=== PATIENT | male | born 1985 | race Caucasian/White ===

== ENCOUNTER 2016-04-10 04:21 | Emergency (ER) | payer OTHER ==
[~2016-04-10] VITALS: Ht 177.8 cm; Wt 65.9 kg
[~2016-04-10 04:21] MED LIST: AMOX-366 PO; OXYC1TAB24 PO
[2016-04-10 04:38] VITALS: BP 145/99; PULSE 97; RESP 18; O2SAT 99
--- NOTE | 2016-04-10 04:46 | ED.REPORT ---
HPI-Facial Injury Date of Service Apr 10, 2016 ED Provider: Doc,Ed MD The patient is a 31 year old male who presents to the ED complaining of a cyst to his chin for the last two days. He also reports continued pain from second degree collins he sustained earlier this week to both hands which he was treated for at [facility] (required 4 day stay). He denies any other symptoms at this time. Nursing Notes Stated Complaint: CYST ON CHIN,RED STREAK L LEG PAIN IN HANDS Chief Complaint: Skin Rash/Abscess Nursing Notes Reviewed: Yes Allergies: Coded Allergies: No Known Allergies (Verified Allergy, Unknown, 11/30/15) Scheduled Amoxicillin/Clav K 875-125 mg (Augmentin 875-125 mg) 1 Each Tablet 1 TABLET PO BID oxyCODONE-Acetaminophen 5-325 mg (oxyCODONE-Acetaminophen 5-325 mg) 1 Each Tablet 1-2 TAB PO q4-6h Miscellaneous Medications ([None]) General Time Seen by Provider: 04:50 Chief Complaint Other (chin cyst, collins to hands) Hx Obtained From: Patient Arrived By: Walk-in Onset Occurred: 2 days ago Symptom Duration: Since onset Progression Since Onset: Unchanged Location: : Chin Quality: Painful Severity: Current: Mild Severity: Maximum: Moderate Recent Healthcare: Recent doctor visit, Recent hospitalization Similar Sx Previous: No Past Medical History Past Medical History Denies Reports: Heroin use Past Surgical History None Smoking History Current Every Day Smoker Social History Lives with his father in an , which they move to different locations daily. Both him and his father use heroin. Drug Use: Meth, Other Other Social History: Poor social support, Local resident Ambulatory Status Independent Review of Systems Review of Systems Note: Cyst to chin Second degree collnis to both hands Constitutional: Denies: Chills, Fever Musculoskeletal: Reports: Extremity pain (bilat hands) Neurologic: Denies: Change LOC, Headache, Lightheaded, Numbness Complete sys rev & neg: except as marked. Physical Exam Initial Vital Signs Vital Signs (First) Date Time Temp Pulse Resp B/P Pulse Ox O2 Delivery O2 Flow Rate FiO2 04/10/16 04:38 36.8 97 18 145/99 99 Room Air Initial VS: Reviewed, Vital signs abnormal Respiratory: Breath sounds normal, Clear to auscultation, No respiratory distress Cardiovascular: Regular rate & rhythm, Heart sounds normal, Intact distal pulses Abdomen / GI: Soft, Non-tender, No guarding, No rebound, No distention Back: No CVA tenderness Psychiatric: Mood/affect normal, Behavior normal, Normal thought content Head / Eyes: PERRL, EOMI Large draining cystic lesion on left chin, no spread of swelling or erythema into the floor of the mouth ENT: Atraumatic, Airway patent, Mucous membranes moist Neck: Atraumatic, Supple, No meningismus Neurologic: Oriented X3, Speech NL, No motor deficits, No sensory deficits Wrist/Hand: Healing 2nd degree collins to both hands with some scabbed erythemetous areas Lower extermities: Tender erythemetous area on left medial zambrano consistent with cellulitis Re-Eval/Medical Decision Med Decision/Clinical Course 31-year-old male who presents with an acne type cyst on his chin which has been draining and an area of redness and tenderness on his left lower leg related to his recent burn. The collins on his arms and hands appear to be healing okay without significant infection. He has a history of drug use. He was placed on trimethoprim sulfamethoxazole DS 1 by mouth twice a day, #20. He will do warm compresses. He will follow up with his primary or return to the emergency room physician if problems. Source of Hx: Old records Re-Evaluation/Progress : Time of Eval: 04:50 Re-Evaluation/Progress Note: Met with patient. Upon reviewing history and symptoms, discussed diagnosis and plan for discharge. Follow-up instructions and RTER warnings given. The patient understands and agrees to the plan. All questions addressed. Counseled Regarding: Diagnosis, Need for follow-up, When/why to return to ED Discharge & Departure Impression: Primary Impression: Cellulitis Site of cellulitis: extremity Site of cellulitis of extremity: lower extremity Laterality: left Qualified Code: L03.116 - Cellulitis of left lower limb Additional Impression: Abscess Disposition: Home Discharge Condition All VS Reviewed: Yes Condition: Stable Patient Instructions: Abscess (GEN), Cellulitis (ED) Additional Instructions: Warm compresses to the chin. Trimethoprim sulfamethoxazole DS 1 by mouth twice a day, #20 prescription dispensed. Follow up with your primary doctor as needed for persistent symptoms. Referrals: Gia Peraza ARNP (PCP) Scribe Attestation Portions of this note were transcribed by Garland Cardozo. I, Dr. Finn, personally performed the history, physical exam and medical decision-making; I reviewed and confirmed the accuracy of the information in the transcribed note. Signed by: Phong Goddard, 04/10/16 05:09. copies to: Gia Peraza,David Peterson MD Apr 10, 2016 04:46 GARLAND CARDOZO Apr 10, 2016 04:53
[2016-04-10 05:29] VITALS: BP 143/93; PULSE 91; RESP 16; O2SAT 97
[2016-04-10] MEDS ORDERED: _Trimethoprim-Sulfa 160/800 mg Tablet PO SCH (08:30)
== END 2016-04-10 05:30 | disposition home or self-care (01) ==
LOC: SED 04:21
DX: L03.116 Cellulitis of left lower limb (principal); L02.416 Cutaneous abscess of left lower limb; F11.90 Opioid use, unspecified, uncomplicated; F17.200 Nicotine dependence, unspecified, uncomplicated

== ENCOUNTER 2016-08-25 02:38 | Emergency (ER) | payer OTHER ==
[~2016-08-25] VITALS: Ht 177.8 cm; Wt 65.9 kg
[2016-08-25 02:40] VITALS: BP 115/79; PULSE 111; RESP 26; O2SAT 98
--- NOTE | 2016-08-25 02:48 | ED.REPORT ---
HPI-Extremity Problem Upper Date of Service August 25, 2016 ED Provider: Dr. Mueller Pt is a 31 y/o male w/ a hx of heroin abuse presenting to the ED c/o RUE swelling s/p injury which occurred about 2 weeks ago. The patient was at work and a 100 lb piece of metal fell down and hit his right forearm. This caused pain, swelling, and bruising. The bruising decreased but the swelling and pain has remained present. He is having trouble with range of motion of the elbow. He denies any opiate addiction problems in the past although records indicate prior heroin addiction. Nursing Notes Stated Complaint: SWOLLEN RIGHT ARM Chief Complaint: Extremity Trauma Nursing Notes Reviewed: Yes Allergies: Coded Allergies: No Known Allergies (Verified Allergy, Unknown, 08/25/16) Scheduled Amoxicillin/Clav K 875-125 mg (Augmentin 875-125 mg) 1 Each Tablet 1 TABLET PO BID oxyCODONE-Acetaminophen 5-325 mg (oxyCODONE-Acetaminophen 5-325 mg) 1 Each Tablet 1-2 TAB PO q4-6h Scheduled PRN Ibuprofen (Ibuprofen) 600 Mg Tablet 600 MG PO QID PRN PRN For Pain Tramadol (Tramadol) 50 Mg Tablet 100 MG PO Q6H PRN PRN For Pain Miscellaneous Medications ([None]) General Time Seen by MD: 02:47 Chief Complaint Other (RUE swelling) Hx Obtained From: Patient Arrived By: Walk-in Onset Occurred: More than a week ago... (2 weeks) Symptom Duration: Since onset Caused by: Blunt injury Location: : Forearm right Quality: Painful Severity: Current: Mild Severity: Maximum: Moderate Past Medical History Past Medical History Denies Reports: Heroin use Past Surgical History None Smoking History Current Every Day Smoker Social History Lives with his father in an , which they move to different locations daily. Both him and his father use heroin. Drug Use: In recovery, Meth, Other Other Social History: Poor social support, Local resident Ambulatory Status Independent Review of Systems Constitutional: Denies: Chills, Fever Musculoskeletal: Reports: Extremity pain, Extremity swelling Skin: Denies Rash Complete sys rev & neg: except as marked. Physical Exam Initial Vital Signs Vital Signs (First) Date Time Temp Pulse Resp B/P Pulse Ox O2 Delivery O2 Flow Rate FiO2 08/25/16 02:40 37.2 111 26 115/79 98 Room Air Initial VS: Reviewed, Vital signs abnormal Head / Eyes: Atraumatic, Normocephalic, PERRL ENT: Mucous membranes moist, Conjunctiva normal, No scleral icterus Neck: Supple, Full range of motion Respiratory: No respiratory distress Cardiovascular: Intact distal pulses Abdomen / GI: Soft, No distention Lower Extremities: Vascular intact, Neuro intact, No swelling, No tenderness Skin: Warm, Dry, No cyanosis Neurologic: Alert, Oriented, Nonfocal Psychiatric: Mood/affect normal, Behavior normal, Normal thought content General/Constitutional: Awake, Alert, No acute distress, Well appearing, Cooperative, Not toxic appearing Upper Extremity / MS: No erythema, No deformity, Neurologic intact, Vascular intact, No compartment syndrome, No clubbing/cyanosis Tense, tender, and swollen right arm with palpable hematoma underlying the skin Interpretation & Diagnostics X-Ray Interpretation Study Performed: 2 view X-Ray Ordered: Radius ulna right Interpretation / Wet Read by: Wet read ED physician Interpretation: Normal exam, No fracture/dislocation Study Performed: 2 view X-Ray Ordered: Elbow right Interpretation / Wet Read by: Wet read ED physician Interpretation: Normal exam, No fracture/dislocation Re-Eval/Medical Decision Med Decision/Clinical Course 31-year-old presents with a hematoma on his extensor surface of his right forearm after a pipe fell on her work. Bones are intact, although the edema limits the motion of the arm. No indication of an abscess and no active IVDA activity. He initially denied any history of drug abuse, but when confronted with his past history, acknowledges that he did in fact have a history. He was provided with tramadol but no additional opioid agents. Ibuprofen as primary relief and tramadol as needed. Discharged in stable condition. Re-Evaluation/Progress : Time of Eval: 03:55 Re-Evaluation/Progress Note: Pt rechecked. Confronted the patient regarding his past opioid addiction. Informed pt of plan for treatment. Pt understands and agrees with plan for treatment. F/U instructions and RTER warnings given. All questions addressed. Counseled Regarding: Diagnosis, Need for follow-up, When/why to return to ED Discharge & Departure Impression: Primary Impression: Hematoma of arm Encounter type: initial encounter Laterality: right Qualified Code: S40.021A - Contusion of right upper arm, initial encounter Disposition: Home Discharge Condition All VS Reviewed: Yes Condition: Stable Patient Instructions: Hematoma (ED) Additional Instructions: Apply a hot soak to this area four times daily for 10-15 minutes per time. Elevate the arm whenever possible. Move it around gently to promote movement and bring blood to the area. Ibuprofen then tramadol if needed for pain. Follow-up with your doctor in the office. Referrals: Gia Peraza ARNP (PCP) Brina[facility] Attestation Portions of this note were transcribed by Charles Verdugo. I, Dr. Reyes personally performed the history, physical exam and medical decision-making; I reviewed and confirmed the accuracy of the information in the transcribed note. Signed by Phong Munguia, 08/25/16 - 1518 copies to: Gia Peraza ARNP Roberts, Christopher W MD August 25, 2016 02:48 CHARLES VERDUGO August 25, 2016 02:51
[2016-08-25] MEDS ORDERED: TRAM50TA2 PO (03:50)
[2016-08-25] MEDS ORDERED: IBUP-1827 PO (03:51)
[2016-08-25 04:01] VITALS: BP 94/61; PULSE 89; RESP 14; O2SAT 98
--- NOTE | 2016-08-25 08:50 | DRSVH ---
PROCEDURE: X-RAY RIGHT FOREARM, TWO VIEWS ([id number]) INDICATIONS: metal hit arm at work TECHNIQUE: 2 views of the forearm were acquired. COMPARISON: None. FINDINGS: Bones: No fractures or dislocations. No suspicious bony lesions. Soft tissues: No suspicious soft tissue calcifications or masses. IMPRESSION: No displaced fracture seen. If there is continued pain, followup exam or additional vale ging such as MRI or CT could be performed for further assessment. Dictated by: Shoaib Hatfield RRA Interpreted: Lissette Coates MD on 08/25/2016 at 8:49 Transcribed by: HARINDER on 08/25/2016 at 8:50 Approved by: Lissette Coates MD, PhD on 08/25/2016 at 9:40
--- NOTE | 2016-08-25 08:51 | DRSVH ---
PROCEDURE: X-RAY RIGHT ELBOW, TWO VIEWS ([id number]) INDICATIONS: hit by metal at work TECHNIQUE: 2 views of the elbow were acquired. COMPARISON: None. FINDINGS: Bones: No fractures or dislocations. No suspicious bony lesions. Soft tissues: No elbow joint effusion. No suspicious soft tissue calcifications. IMPRESSION: No displaced fracture seen. If there is continued pain, followup exam or additional vale ging such as MRI or CT could be performed for further assessment. Dictated by: Shoaib Hatfield [facility] Interpreted: Lissette Coates MD on 08/25/2016 at 8:50 Transcribed by: HARINDER on 08/25/2016 at 8:50 Approved by: Lissette Coates MD, PhD on 08/25/2016 at 9:40
== END 2016-08-25 04:06 | disposition home or self-care (01) ==
LOC: SED 02:38
DX: S40.021A Contusion of right upper arm, initial encounter (principal); W20.8XXA Other cause of strike by thrown, projected or falling object, initial encounter; Y92.59 Other trade areas as the place of occurrence of the external cause; Y93.89 Activity, other specified; Y99.0 Civilian activity done for income or pay; F11.21 Opioid dependence, in remission; F17.200 Nicotine dependence, unspecified, uncomplicated

== ENCOUNTER 2016-10-01 20:56 | Emergency (ER) | payer OTHER ==
[~2016-10-01] VITALS: Ht 177.8 cm; Wt 65.9 kg
[~2016-10-01 20:56] MED LIST changes: +IBUP-1827 PO; +TRAM50TA2 PO
[2016-10-01 20:59] VITALS: BP 120/84; PULSE 105; RESP 16; O2SAT 100
--- NOTE | 2016-10-02 00:04 | ED.REPORT ---
HPI-Rash / Abscess Date of Service Oct 02, 2016 ED Provider: David Finn MD Pt is an otherwise healthy 31 year old male with a history of MRSA who presents to the ED complaining of right leg swelling onset yesterday. He c/o associated headache, right leg erythema and pain. He denies any other symptoms. The pt reports that his symptoms started out as a small erythematous area on the outer aspect of his leg yesterday. Nursing Notes Stated Complaint: SEVERE PAIN AND SWELLING IN RIGHT LEG Chief Complaint: Skin Rash/Abscess Nursing Notes Reviewed: Yes Allergies: Coded Allergies: No Known Allergies (Verified Allergy, Unknown, 08/25/16) Scheduled Amoxicillin/Clav K 875-125 mg (Augmentin 875-125 mg) 1 Each Tablet 1 TABLET PO BID oxyCODONE-Acetaminophen 5-325 mg (oxyCODONE-Acetaminophen 5-325 mg) 1 Each Tablet 1-2 TAB PO q4-6h Scheduled PRN Ibuprofen (Ibuprofen) 600 Mg Tablet 600 MG PO QID PRN PRN For Pain Tramadol (Tramadol) 50 Mg Tablet 100 MG PO Q6H PRN PRN For Pain Miscellaneous Medications ([None]) General Time Seen by MD: 22:37 Chief Complaint Tender/swollen area Hx Obtained From: Patient Arrived By: Walk-in Onset Occurred: Yesterday Symptom Duration: Since onset Location: : Lower extremity Quality: Painful Severity: Current: Moderate Severity: Maximum: Moderate Recent Healthcare: No recent doctor visit, No recent hospitalization Similar Sx Previous: Yes Past Medical History Past Medical History Denies: Congestive heart failure, Diabetes mellitus, Hypertension Reports: Heroin use Past Surgical History Aorta repair Smoking History Current Every Day Smoker Social History Lives with his father in an , which they move to different locations daily. Both him and his father use heroin. Alcohol Use: Denies alcohol use Drug Use: In recovery, Meth, Other Other Social History: Poor social support, Local resident Ambulatory Status Independent Review of Systems + Erythematous right leg Constitutional: Denies: Fever Respiratory: Denies: Non-productive cough Musculoskeletal: Reports: Extremity pain, Extremity swelling Complete sys rev & neg: except as marked. Neurologic: Reports: Headache Physical Exam Initial Vital Signs Vital Signs (First) Date Time Temp Pulse Resp B/P Pulse Ox O2 Delivery O2 Flow Rate FiO2 10/01/16 20:59 36.9 105 16 120/84 100 Room Air Initial VS: Reviewed, Vital signs abnormal Head / Eyes: Atraumatic, Normocephalic Neck: Supple, Full range of motion Respiratory: Breath sounds normal, Clear to auscultation, No respiratory distress Cardiovascular: Regular rate & rhythm, Heart sounds normal, Intact distal pulses Abdomen / GI: Soft, Non-tender Neurologic: Alert, Oriented, Nonfocal Psychiatric: Mood/affect normal, Behavior normal, Normal thought content General/Constitutional: Awake, Alert, Cooperative Skin: Warm, Dry, Intact Lower Extremity / Pelvis / MS: Full range of motion, Neurologic intact, Vascular intact Slight swelling, moderate tenderness, and moderate erythema of lateral aspect of right calf. No adenopathy. Re-Eval/Medical Decision Med Decision/Clinical Course 31-year-old male with uncomplicated lower extremity cellulitis. He has a history of MRSA so was placed on a MRSA antibiotic. There is no source to culture at this time. He has no evidence of severe sepsis, only a mild tachycardia. Source of Hx: Old records Re-Evaluation/Progress : Time of Eval: 00:19 Re-Evaluation/Progress Note: Pt rechecked. Informed pt of plan for discharge. Pt understands and agrees with plan for discharge. F/U instructions and RTER warnings given. All questions addressed. Counseled Regarding: Diagnosis, Need for follow-up, When/why to return to ED Discharge & Departure Impression: Primary Impression: Cellulitis of right lower extremity Disposition: Home Discharge Condition All VS Reviewed: Yes Condition: Stable Patient Instructions: Cellulitis (ED) Additional Instructions: Trimethoprim sulfamethoxazole DS 1 by mouth twice a day for 10 days, #20 dispensed. Elevate and warm compresses. Recheck at the residency clinic as needed for persistent symptoms. Referrals: Gia Peraza ARNP (PCP) [facility] Scribe Attestation Portions of this note were transcribed by Sadie Toscano. I, Dr. Finn personally performed the history, physical exam and medical decision-making; I reviewed and confirmed the accuracy of the information in the transcribed note. Signed by: Phong Weaver, 10/02/16 and 00:50. copies to: Gia Peraza ARNP; [facility] David Finn MD Oct 02, 2016 00:04 Sadie Berg Oct 02, 2016 00:12
[2016-10-02 01:03] VITALS: BP 119/82; PULSE 89; RESP 16; O2SAT 100
[2016-10-02] MEDS ORDERED: _Trimethoprim-Sulfa 160/800 mg Tablet PO SCH (08:30)
== END 2016-10-02 01:03 | disposition home or self-care (01) ==
LOC: SED 20:56
DX: L03.115 Cellulitis of right lower limb (principal); F17.200 Nicotine dependence, unspecified, uncomplicated; Z86.14 Personal history of Methicillin resistant Staphylococcus aureus infection

== ENCOUNTER 2016-12-26 16:32 | Emergency (ER) | payer OTHER ==
[~2016-12-26] VITALS: Ht 177.8 cm; Wt 63.6 kg
[2016-12-26 16:38] VITALS: BP 124/84; PULSE 100; PULSE 78; RESP 18; O2SAT 99
--- NOTE | 2016-12-26 16:45 | ED.REPORT ---
HPI-General Illness Date of Service Dec 26, 2016 ED Provider: Jack Figueroa MD The pt is a 31 y/o male w/ a hx of MRSA presenting to the ED due to heroin withdrawal for the last 24 hours. His symptoms include a rapid heartbeat, rapid breathing, limb pain, convulsions, nausea, diaphoresis, and vomiting. Denies diarrhea. The pt has used heroin for the last 2 years. He has not tried Suboxone before. Nursing Notes Stated Complaint: HEROIN WITHDRAWAL Chief Complaint: Heroin withdrawal Nursing Notes Reviewed: Yes (iSkoot not reconciled) Allergies: Coded Allergies: No Known Allergies (Verified Allergy, Unknown, 08/25/16) Scheduled Amoxicillin/Clav K 875-125 mg (Augmentin 875-125 mg) 1 Each Tablet 1 TABLET PO BID Buprenorphine/Naloxone 8-2 mg (Buprenorphine/Naloxone 8-2 mg) 1 Each Tab.subl 2 TABLET SL DAILY oxyCODONE-Acetaminophen 5-325 mg (oxyCODONE-Acetaminophen 5-325 mg) 1 Each Tablet 1-2 TAB PO q4-6h Scheduled PRN Ibuprofen (Ibuprofen) 600 Mg Tablet 600 MG PO QID PRN PRN For Pain Tramadol (Tramadol) 50 Mg Tablet 100 MG PO Q6H PRN PRN For Pain Miscellaneous Medications ([None]) General Time Seen by MD: 16:43 Chief Complaint Other (Heroin withdrawal ) Hx Obtained From: Patient Arrived By: Walk-in Sudden in Onset?: Yes Onset Occurred: Just prior to arrival Symptom Duration: Since onset Recent Healthcare: No recent hospitalization, Recent doctor visit Similar Sx Previous: Yes Past Medical History Past Medical History h/o MRSA Reports: Heroin use Past Surgical History Aorta repair Smoking History Current Every Day Smoker Social History Lives with his father in an , which they move to different locations daily. Both him and his father use heroin. Alcohol Use: Denies alcohol use Drug Use: In recovery, Meth, Other Other Social History: Poor social support, Local resident Ambulatory Status Independent Review of Systems + rapid heartbeat; + Rapid breathing; + Limb pain; + Convulsions; Full Review of Systems GI: Reports: Nausea, Vomiting, Denies: Diarrhea Skin: Reports Diaphoresis Complete sys rev & neg: except as marked. Physical Exam Vital Signs Vital Signs Date Time Temp Pulse Resp B/P Pulse Ox O2 Delivery O2 Flow Rate FiO2 12/26/16 16:38 37.0 100 18 124/84 99 Room Air Initial VS: Reviewed, Vital signs normal (but per RN had episodes of brief tachycardia) Head / Eyes: Atraumatic, Normocephalic, PERRL ENT: Mucous membranes moist, Conjunctiva normal, No scleral icterus Neck: Supple, Non-tender, Full range of motion Respiratory: Breath sounds normal, Clear to auscultation, No respiratory distress Extremities: Vascular intact, Neuro intact, No swelling, No tenderness Neurologic: Alert, Oriented, Nonfocal Psychiatric: Mood/affect normal, Behavior normal, Normal thought content General/Constitutional: Awake, Alert Tremulous; Pt appears in moderate withdrawal; Restless; Cardiovascular: Regular rhythm, Heart sounds NL Heart Rate / Rhythm: Positive: Tachycardia Skin: No rash, Intact Diaphoretic; Piloerection; Re-Eval/Medical Decision Med Decision/Clinical Course This is a 31-year-old male long history of opiate abuse presents indicating he is trying to get clean, has used heroin for the past 24 hours now severe withdrawals can get help. He clinically appears in significant withdrawal, diaphoretic, restless, complaining of body aches, correction, and complaining of nausea. He received a single dose of Suboxone with marked improvement at the 4 mg dose. Findings indication for aggressive laboratory testing. The patient is willing to wait a few hours in the department, as vibrant he was able to prescribe an initial course of Suboxone arrived and saw the patient, and wrote for starting prescription. Patient is being discharged in much improved condition. Source of Hx: Old records Time of Eval: 18:24 Re-Evaluation/Progress Note: Pt rechecked and agrees to see Dr. Westbrook to speak about going to [facility]. Differential Diagnosis: Positive: Drug dependence, Negative: Acute coronary syndrome, Allergies, Diabetes mellitus, G-tube repair/replacement, Pneumonia Counseled Regarding: Diagnosis, Lab results, Need for follow-up, When/why to return to ED Discharge & Departure Primary Impression: Opioid dependence with withdrawal Disposition: Home Discharge Condition All VS Reviewed: Yes Condition: Stable Additional Instructions: 1. You were started on the medication suboxone to help address withdrawal. 2. Continue Suboxone 8/, 2 strips or 2 pills dissolved orally daily, #8 prescribed. 3. Call the priority access appointment line for [facility] at for the next available intake appointment. 3. Contact Dr. westbrook at [phone] or tomorrow night tearing the hours of 9 PM and 6 AM if you have any questions. Referrals: Gia Peraza ARNP (PCP) Care Transferred to: Dr. Westbrook Care Transferred at: 21:00 Scribe Attestation Portions of this note were transcribed by Nakul Myles. I, Dr. Figueroa personally performed the history, physical exam and medical decision-making; I reviewed and confirmed the accuracy of the information in the transcribed note. copies to: Gia Peraza ARNP Russell, Matthew F MD Dec 26, 2016 16:45 Nakul Myles Dec 26, 2016 16:51 David Westbrook MD Dec 26, 2016 21:22
[2016-12-26] MEDS ORDERED: Buprenorphine 2 mg SL Tablet SL ONE ×2 (17:10→21:20)
[2016-12-26] MEDS ORDERED: BUPR1TAB36 SL (21:23)
== END 2016-12-26 21:54 | disposition home or self-care (01) ==
LOC: SED 16:32
DX: F11.23 Opioid dependence with withdrawal (principal); R00.0 Tachycardia, unspecified; R56.9 Unspecified convulsions; R61 Generalized hyperhidrosis; R11.2 Nausea with vomiting, unspecified; M79.609 Pain in unspecified limb; F17.200 Nicotine dependence, unspecified, uncomplicated; Z86.14 Personal history of Methicillin resistant Staphylococcus aureus infection